=== PATIENT | male | born 1985 | race African-American/Black ===

== ENCOUNTER 2017-06-11 02:50 | Emergency (ER) | payer OTHER ==
[~2017-06-11] VITALS: Ht 188 cm; Wt 83.9 kg
[~2017-06-11 02:50] MED LIST: AMOXICILLIN 50500 M1 PO; FAMOTIDINE 20 M20 MG PO; HALDOL 0.5 MG0.5 MG PO; KEFLEX500 MG PO; NOHOMEMEDICATIONS; NORCO 5-325 TA1 EACH PO; PAIN & FEVER325 MG PO; TEARS NATURALE1 EACH OPHTHALMIC
[2017-06-11 02:51] VITALS: BP 129/80
[2017-06-11] MEDS ORDERED: NEURONTIN 300300 M1 PO (02:55)
== END 2017-06-11 03:22 | disposition home or self-care (01) ==
LOC: ER 02:50
DX: G62.9 Polyneuropathy, unspecified (principal); F17.210 Nicotine dependence, cigarettes, uncomplicated